=== PATIENT | female | born 1980 | race Caucasian/White ===

== ENCOUNTER 2017-09-17 07:56 | Emergency (ER) | payer MEDICAID ==
[~2017-09-17] VITALS: Wt 65.9 kg
[~2017-09-17 07:56] MED LIST: ACET325T33 PO; IBUP-1542 PO
--- NOTE | 2017-09-17 09:14 | RADRPT ---
PROCEDURE: US Thyroid. CLINICAL INDICATION: Right neck mass TECHNIQUE: Multiple sonographic images of the thyroid were obtained. Transverse and sagittal imagi ng of the gland and noel-thyroidal tissues was performed with a high frequency linear array transduc er. Color interrogation was performed as well. The images were reviewed on a PACS workstation. COMPARISON: No prior studies are available for comparison. FINDINGS: Thyroid Size: Right lobe: 4.6 x 2.3 x 2.3 cm Left lobe: 3.3 x 1.2 x 1.3 cm Appearance: Echogenicity: normal Vascularity: normal Right thyroid nodules: Nodule #1: Size: 2.1 x 1.0 x 1.5 cm Location: Right mid thyroid lobe Composition: Solid Echogenicity: Hypoechoic Shape: Wider than tall Margin: Ill-defined, lobular Echogenic foci: None Left thyroid nodules: Nodule #1: Size: 0.8 x 0.8 x 0.4 cm Location: Mid left thyroid lobe Composition: Solid Echogenicity: Hypoechoic Shape: Wider than tall Margin: Smooth Echogenic foci: None Additional: Adenopathy: None Soft tissues: Normal IMPRESSION: 1. Right thyroid nodule with TI RADS 4. FNA is recommended. 2. Left thyroid TI RADS 1 nodule. TI-RADS 1: Benign, <2% malignancy risk: No FNA TI-RADS 2: Not suspicious, <2% malignancy risk: No FNA TI-RADS 3: Mildly suspicious, 5% malignancy risk: FNA if ? 2.5 cm TI-RADS 4: Moderately suspicious, 5-20% malignancy risk: FNA if ? 1.5 cm TI-RADS 5: Highly suspicious, >20% malignancy risk: FNA if ? 1.0 cm RPTAT: HH .Carmelina Rivas MD, MD Date Time Electronically viewed and signed by .Carmelina Rivas MD, MD on 09/17/2017 09:14 .G/
[2017-09-17 09:16] LABS: BASOPHILS % 0.2 % (0.0-2.0); EOSINOPHILS # 0.1 10^3/ul (0.0-0.5); HEMATOCRIT 39.4 % (37.0-47.0); HEMOGLOBIN 13.4 g/dl (12.0-16.0); LYMPHOCYTES # 1.6 10^3/ul (0.8-2.9); MEAN CORPUSCULAR HEMOGLOBIN 33.6 pg (29.0-33.0); MEAN CORPUSCULAR VOLUME 98.7 fl (82.0-101.0); MEAN PLATELET VOLUME 11.8 fl (7.4-10.4); MONOCYTE # 0.7 10^3/ul (0.3-0.9); MONOCYTES % 8.1 % (0.0-11.0); NEUTROPHIL # 6.1 10^3/ul (1.6-7.5); NEUTROPHILS % 71.1 % (39.0-77.0); PLATELET COUNT 225 10^3/UL (140-415); RED BLOOD COUNT 3.99 10^6/ul (4.20-5.40); RED CELL DISTRIBUTION WIDTH 11.5 % (11.5-14.5); WHITE BLOOD COUNT 8.6 10^3/ul (4.8-10.8)
[2017-09-17 09:32] LABS: ALBUMIN/GLOBULIN RATIO 1.05; BILIRUBIN,INDIRECT 0.5 mg/dl (0-1.1); BILIRUBIN,TOTAL 0.5 mg/dl (0.2-1.3); CREATININE 0.65 mg/dl (0.44-1.00); POTASSIUM 4.9 mmol/L (3.5-5.1); TOTAL PROTEIN 7.8 g/dl (6.1-8.1)
[2017-09-17 09:48] LABS: T3 UPTAKE 39.4 % (23.5-40.5)
[2017-09-17] MEDS ORDERED: IBUP800T25 PO (12:02)
--- NOTE | 2017-09-17 17:55 | ERD ---
ER Documentation Chief Complaint Chief Complaint neck pain HPI 37-year-old female complaining of left anterior neck pain 2 weeks. Patient stated that she takes Tylenol and ibuprofen without relief of pain. She was seen by her PCP, and was referred to a specialist for testing. She has unable to obtain appointment with the specialist. Denies fever or chills. Denies unexplained weight gain or weight loss. Denies palpitations. Denies fatigue. ROS All systems reviewed and are negative except as per history of present illness. Medications Home Meds Active Scripts Ibuprofen* (Motrin*) 800 Mg Tab, 800 MG PO Q6H Y for PAIN AND OR ELEVATED TEMP, #30 TAB Prov:SHANICE COLVIN. DIRECTOR ADVANCED 09/17/17 Acetaminophen* (Tylenol*) 325 Mg Tablet, 2 TAB PO Q8 Y for PAIN AND OR ELEVATED TEMP, #20 TAB Prov:TIFFANIE MANNING DO 02/10/16 Ibuprofen* (Motrin*) 600 Mg Tab, 600 MG PO Q8, #14 TAB Prov:TIFFANIE MANNING DO 02/10/16 Allergies Allergies: Coded Allergies: No Known Drug Allergy (Verified Allergy, Mild, 02/10/16) PMhx/Soc History of Surgery: Yes (ORAL) Anesthesia Reaction: No Hx Neurological Disorder: No Hx Respiratory Disorders: No Hx Cardiac Disorders: No Hx Psychiatric Problems: No Hx Miscellaneous Medical Probl: No Hx Alcohol Use: No Hx Substance Use: No Hx Tobacco Use: No Physical Exam Vitals Vital Signs Date Time Temp Pulse Resp B/P Pulse Ox O2 Delivery O2 Flow Rate FiO2 09/17/17 07:58 98.4 89 20 129/79 98 Physical Exam General: Well-developed, well-nourished, conscious and coherent, in no distress Skin: Warm and dry without rash, good texture and turgor Head: Normocephalic without evidence of trauma Eyes: Sclera and conjunctivae normal; pupils equal, round, and reactive to light; extraocular movements are intact Mouth/throat: Mucous membranes are moist. Posterior pharynx clear without erythema or exudates Neck: Supple. Right thyroid appeared to be enlarged and palpable, tender to palpation. No midline C-spine tenderness. No meningismus. Chest: Normal AP diameter. Good expansion without retractions. Nontender. Lungs are clear to auscultate bilaterally with good tidal volume Heart: Regular rate and rhythm. No murmur, rub, or gallops heard Extremities: Full range of motion. Good strength bilaterally. No clubbing, cyanosis, or edema. Peripheral pulses are intact. Sensation intact Neuro: Alert and oriented 4, GCS 15. Cranial nerves grossly intact. Motor and sensory exams nonfocal. Moves all extremities. Speech clear. Gait normal Result Diagram: 09/17/17 0840 09/17/17 0840 Results 24 hrs Laboratory Tests Test 09/17/17 08:40 White Blood Count 8.610^3/ul Red Blood Count 3.9910^6/ul Hemoglobin 13.4g/dl Hematocrit 39.4% Mean Corpuscular Volume 98.7fl Mean Corpuscular Hemoglobin 33.6pg Mean Corpuscular Hemoglobin Concent 34.0g/dl Red Cell Distribution Width 11.5% Platelet Count 62951^3/UL Mean Platelet Volume 11.8fl Neutrophils % 71.1% Lymphocytes % 19.0% Monocytes % 8.1% Eosinophils % 1.0% Basophils % 0.2% Nucleated Red Blood Cells % 0.0/100WBC Neutrophils # 6.110^3/ul Lymphocytes # 1.610^3/ul Monocytes # 0.710^3/ul Eosinophils # 0.110^3/ul Basophils # 0.010^3/ul Nucleated Red Blood Cells # 0.010^3/ul Sodium Level 143mmol/L Potassium Level 4.9mmol/L Chloride Level 106mmol/L Carbon Dioxide Level 29mmol/L Anion Gap 13 Blood Urea Nitrogen 9mg/dl Creatinine 0.65mg/dl Glucose Level 107mg/dl Calcium Level 9.0mg/dl Total Bilirubin 0.5mg/dl Direct Bilirubin 0.00mg/dl Indirect Bilirubin 0.5mg/dl Aspartate Amino Transf (AST/SGOT) 18IU/L Alanine Aminotransferase (ALT/SGPT) 21IU/L Alkaline Phosphatase 75IU/L Total Protein 7.8g/dl Albumin 4.0g/dl Globulin 3.80g/dl Albumin/Globulin Ratio 1.05 Thyroid Stimulating Hormone (TSH) 0.086MIU/L Free Thyroxine Index 3.11ug/ml Thyroxine (T4) 7.9ug/dl Triiodothyronine (T3) Uptake 39.4% PROCEDURE: US Thyroid. CLINICAL INDICATION: Right neck mass TECHNIQUE: Multiple sonographic images of the thyroid were obtained. Transverse and sagittal imaging of the gland and noel-thyroidal tissues was performed with a high frequency linear array transducer. Color interrogation was performed as well. The images were reviewed on a PACS workstation. COMPARISON: No prior studies are available for comparison. FINDINGS: Thyroid Size: Right lobe: 4.6 x 2.3 x 2.3 cm Left lobe: 3.3 x 1.2 x 1.3 cm Appearance: Echogenicity: normal Vascularity: normal Right thyroid nodules: Nodule #1: Size: 2.1 x 1.0 x 1.5 cm Location: Right mid thyroid lobe Composition: Solid Echogenicity: Hypoechoic Shape: Wider than tall Margin: Ill-defined, lobular Echogenic foci: None Left thyroid nodules: Nodule #1: Size: 0.8 x 0.8 x 0.4 cm Location: Mid left thyroid lobe Composition: Solid Echogenicity: Hypoechoic Shape: Wider than tall Margin: Smooth Echogenic foci: None Additional: Adenopathy: None Soft tissues: Normal IMPRESSION: 1. Right thyroid nodule with TI RADS 4. FNA is recommended. 2. Left thyroid TI RADS 1 nodule. TI-RADS 1: Benign, <2% malignancy risk: No FNA TI-RADS 2: Not suspicious, <2% malignancy risk: No FNA TI-RADS 3: Mildly suspicious, 5% malignancy risk: FNA if ? 2.5 cm TI-RADS 4: Moderately suspicious, 5-20% malignancy risk: FNA if ? 1.5 cm TI-RADS 5: Highly suspicious, >20% malignancy risk: FNA if ? 1.0 cm RPTAT: .Carmelina Rivas MD, MD Date Time Electronically viewed and signed by .Carmelina Rivas MD, MD on 09/17/2017 09 :14 .G/ CC: SHANICE COLVIN DIRECTOR ADVANCED Procedures/MDM Well-appearing 29-year-old female presented ED was right anterior neck pain 2 weeks. Her right thyroid appeared to be enlarged and palpable. Ultrasound of the thyroid was obtained. Thyroid ultrasound showed a left thyroid TI RADS 1 nodule, and right thyroid nodule with TI RADS 4. CBC and CMP are unremarkable. TSH is low at 0.086, T4, free T4 index, and T3 uptake are within the normal range. Patient is advised of the testing results, and advised to obtain fine-needle aspiration biopsy of her thyroid for further evaluation. Patient given referral to [facility] for follow-up. Patient appears well, stable for discharge and outpatient management. Medical decision making shared with patient and family. Education provided to patient and family. Patient and family expressed understanding of the plan. Medications on discharge: Ibuprofen. Follow-up: Primary care provider in 2-3 days or return to ED if worse. The case was reviewed and discussed with Dr. Sanz, who agrees with the plan of care. Disclaimer: Inadvertent spelling and grammatical errors are likely due to EHR/ dictation software use and do not reflect on the overall quality of patient care. Also, please note that the electronic time recorded on this note does not necessarily reflect the actual time of the patient encounter. Departure Diagnosis: Primary Impression: Thyroid nodule Condition: Stable Patient Instructions: Fine-Needle Thyroid Biopsy, Common Thyroid Problems Referrals: [facility] [place] () Usted se payan hecho un examen mdico de control que le indica que no est en mark condicin que requiera tratamiento urgente en el Departamento de Emergencia. Un estudio ms profundo y el tratamiento de parra condicin pueden esperar sin ningn riesgo hasta que usted sea atendida/o en el consultorio de parra mdico o mark cl matt. Es responsabilidad suya arreglar mark jacinta para el seguimiento del abby. MANEJO DE CONDICIONES NO URGENTES EN EL FUTURO 1) Si usted tiene un mdico de atencin primaria: Usted debera llamar a parra mdico de atencin primaria antes de venir al departamento de emergencia. Despus de las horas de consultorio, parra doctor o parra asociado/a est disponible por telfono. El mdico o enfermero de sharon en el servicio telefnico puede asesorarle por nilesh medio para atender el problema, o abby contrario se puede programar mark jacinta. 2) Si usted no tiene un mdico de atencin primaria: Llame al mdico o condado institucions de referencia que aparece abajo niecy las horas de consultorio para hacer mark jacinta para que le vean. SI USTED NO PUEDE PAGAR PARA DARRELL UN MEDICO puede ir a: [facility] [id number] [address] [place] [facility] [address] [place] [phone] Additional Instructions: Specialist:Usted tiene mark condicin mdica que requiere que guille a un especialista dentro de los prximos 1-2 lyon.POR FAVOR,CON PARRA SEGUIMIENTO DE PRIMARIA PHSICIAN refferal. SI USTED NO TIENE UN MDICO GENERAL Y / O USTED NO PUEDE PAGAR darrell a un mdico,los siguientes yeung RECURSOS sido suministrado a usted. ES PARRA RESPONSABILIDAD PARA SER VISTOS POR EL ESPECIALISTA: County:Ir a alguna de las siguientes hospitales en los prximos 1-2 lyon: [place] [phone] [address] [id number] SHANICE COLVIN NP Sep 17, 2017 17:55
== END 2017-09-17 12:32 | disposition home or self-care (01) ==
LOC: FTE 07:56 → E/R 12:32 → FTE 12:32
DX: E04.2 Nontoxic multinodular goiter (principal)
CPT/HCPCS: 36415; 76536; 80053; 84436; 84443; 84479; 85025; Z7502